=== PATIENT | female | born 1950 | race Caucasian/White ===

== ENCOUNTER → 2021-07-07 | Day surgery (SDC) | payer MEDICARE ==
[2021-07-04 11:28] LABS: BASOPHILS # (AUTO) 0.2 (0.0-0.1); BASOPHILS % 1.5 % (0.0-1.0); EOSINOPHILS # (AUTO) 0.9 (0.0-0.4); EOSINOPHILS % 8.4 % (0.0-6.0); HEMOGLOBIN 14.4 g/dL (12.0-16.0); LYMPHOCYTES # (AUTO) 3.4 (1.0-3.2); LYMPHOCYTES % 32.7 % (18.0-39.1); MEAN CORPUSCULAR HEMOGLOBIN 27.9 pg (28-32); MEAN CORPUSCULAR HGB CONC 33.5 g/dL (31-35); MEAN CORPUSCULAR VOLUME 83.2 fL (81-99); MONOCYTES # (AUTO) 0.8 (0.2-0.8); MONOCYTES % 7.8 % (4.4-11.3); NEUTROPHILS # (AUTO) 5.1 (2.1-6.9); NEUTROPHILS % 49.3 % (38.7-80.0); PLATELET COUNT 323 x10e3/uL (140-360); RED BLOOD COUNT 5.17 x10e6/uL (3.6-5.1); RED CELL DISTRIBUTION WIDTH 13.4 % (11.7-14.4)
[~2021-07-07] MED LIST: ASPIRIN81 MG PO; GABAPENTIN300 MG PO; LANTUS 3ML100 UNITS/ SQ; LASIX40 MG PO; LIPITOR20 MG PO; METFORMIN HCL500 MG PO; METOPROLOL TART50 MG PO; NOVOLOG100 UNIT/1 SC; PANTOPRAZOLE SO40 MG PO; POTASSIUM CHLO20 ME1 PO; ROPINIROLE HCL1 MG PO; SERTRALINE HCL50 MG PO; SINGULAIR10 MG PO; TIZANIDINE HCL4 M1 PO; TRULICITY1.5 MG/0.5 SQ; VITAMIN D PO; XANAX1 MG PO; metoprolol PO
[2021-07-07 10:55] VITALS: BP 196/101
== END | disposition home or self-care (01) ==
LOC: OR 06:52
PROVIDERS: ATTEND Internal Medicine Gastroenterology
DX: D50.9 Iron deficiency anemia, unspecified (principal); K29.70 Gastritis, unspecified, without bleeding; K22.10 Ulcer of esophagus without bleeding; K44.9 Diaphragmatic hernia without obstruction or gangrene; G47.33 Obstructive sleep apnea (adult) (pediatric); E66.01 Morbid (severe) obesity due to excess calories; R19.8 Other specified symptoms and signs involving the digestive system and abdomen; I10 Essential (primary) hypertension; E11.9 Type 2 diabetes mellitus without complications; I49.1 Atrial premature depolarization; Z88.8 Allergy status to other drugs, medicaments and biological substances; Z01.810 Encounter for preprocedural cardiovascular examination; Z01.812 Encounter for preprocedural laboratory examination; Z20.822 Contact with and (suspected) exposure to COVID-19; Z79.84 Long term (current) use of oral hypoglycemic drugs; Z79.82 Long term (current) use of aspirin; Z68.41 Body mass index [BMI] 40.0-44.9, adult
CPT/HCPCS: 36415 ×2; 43239; 45378; 82948; 85025; 88305; 88312; 88342; 93005; U0002